=== PATIENT | male | born 1965 | race Caucasian/White ===

== ENCOUNTER 2017-03-10 11:40 | Inpatient (IN) | payer OTHER ==
[~2017-03-10] VITALS: Ht 170.2 cm; Wt 76.2 kg
--- NOTE | ~2017-03-10 | HC ---
[facility] [place] [address] CONSULTATION Name: GELA ALFARO Room #: 418-P [facility] IN M.R.#: [id number] Admission: 03/10/17 Attend Phys: Sigifredo Jacques MD, Discharge: Date of : 61 Report #: [id number] THIS REPORT FOR: //name// CC: Sigifredo Jacques MD [facility] Everton Leblanc CHIEF COMPLAINT: Right ureteral stone. HISTORY OF PRESENT ILLNESS: The patient is a very pleasant 51-year-old gentleman who is being seen today at the request of Dr. Jacques for evaluation and management of right distal ureteral stone. Specifically, he and saw Dr. Jacques who performed an ultrasound in his office, which revealed right hydronephrosis. He has had intermittent right-sided discomfort and CT is consistent with a 3.4 mm right UVJ stone. ALLERGIES: None. MEDICATIONS: Vyvanse. SOCIAL HISTORY: Nonsmoker. REVIEW OF SYSTEMS: He denies shortness of breath or chest pain. PHYSICAL EXAMINATION: GENERAL: He appears uncomfortable. VITAL SIGNS: Temperature is 36.5, pulse 67, blood pressure 151/88, respirations 18. ABDOMEN: Soft, without masses. LABORATORY DATA: White count , hemoglobin 16.0, hematocrit 46.1, platelets 279,000. Sodium 140, potassium 3.8, chloride 103, CO2 27, BUN 19, creatinine 1.8, glucose 129, calcium 8.7. CT scan shows a small lower pole right renal stone and a 3.4 mm right UVJ stone causing right hydronephrosis. IMPRESSION: Right UVJ stone. PLAN: Trial of passage including tamsulosin and appropriate narcotics and IV hydration. If he remains symptomatic then he will want to proceed with intervention. I discussed ureteroscopic stone extraction in detail with him. By: [id number] Jus Mills MD /nt
--- NOTE | ~2017-03-10 | HC ---
[facility] [place] [address] CONSULTATION Name: GELA ALFARO Room #: 418-P [facility] IN M.R.#: [id number] Admission: 03/10/17 Attend Phys: Sigifredo Jacques MD, Discharge: Date of : 61 Report #: [id number] THIS REPORT FOR: //name// CC: Sigifredo Leblanc DATE OF SERVICE: 03/10/2017 CHIEF COMPLAINT: Intractable flank pain. HISTORY OF PRESENT ILLNESS: The patient is a 51-year-old male, currently admitted by Dr. Jacques for obstructive nephrolithiasis, is needing management of his pain as well as for evaluation of his renal failure. He denies any other medical problems other than ADHD and is on Vyvanse for that. He was admitted early this morning and workup included a CT of the abdomen and pelvis that showed moderate right-sided hydronephrosis, hydroureter with several stones. He has been seen by Dr. Mills with urology and is scheduled for a procedure tomorrow. He has been having intractable right-sided flank pain as well as bilateral pelvic pain. He denies any recent fever or chills. He denies any other constellational symptoms than that has been associated with his kidney stones. He denies any kidney problem, fever, or chills. PAST MEDICAL HISTORY: ADHD, PAST SURGICAL HISTORY: None. FAMILY HISTORY: Cardiac problem on dad's side. SOCIAL HISTORY: He does not smoke, drinks about 3 ounces of whisky daily. He is , lives locally. MEDICATIONS: Vyvanse. ALLERGIES: None. PHYSICAL EXAMINATION: VITAL SIGNS: Temperature of 97, pulse 67, blood pressure 151/88, and O2 sat 96% on room air. GENERAL: He is awake, alert, answering question appropriately, in no acute respiratory distress. HEENT: Normocephalic, atraumatic. Pupils are equal. NECK: Supple. CARDIOVASCULAR: Regular rate and rhythm. No murmurs. LUNGS: Clear to auscultation bilaterally. No crackles or wheezes. ABDOMEN: Soft, obese. No distention. He indicates bilateral pelvic tenderness and right flank tenderness. [facility] [address] [place] [address] CONSULTATION Name: GELA ALFARO Room #: 418-P [facility] IN .R.#: [id number] Admission: 03/10/17 Attend Phys: Sigifredo Jacques MD, Discharge: Date of : 61 Report #: [id number] EXTREMITIES: No edema. NEUROLOGIC: Nonfocal. LABS AND TESTING: CT of the abdomen and pelvis as stated shows moderate right-sided hydronephrosis and hydroureter secondary to a 3-mm ureteric stone at the UV junction bulging into the bladder base, also moderated perinephric stranding and fluids surrounding the right kidney and right proximal ureter. Sodium 140, potassium 3.8, BUN and creatinine 19 and 1.8. Total bilirubin is 2.1. The remainder of his LFTs are within normal limits. We did not have previous labs to compare those two. His white count is 19.3, differential is not available, H of 16 and 46. ASSESSMENT AND PLAN: 1. Obstructive nephropathy with intractable pain. Urology has already been consulted. We will adjust his pain medications. Well will check a UA and also start him on antibiotics empirically. 2. Suspect acute kidney injury secondary to above acute process. We will continue IV hydration and recheck his renal indices in the morning. 3. Leukocytosis with some concerns for infection such as pyelonephritis. As stated, we will start him on some Cipro. Check a UA and follow serial CBCs. 4. 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 CT did not show any biliary or hepatic abnormalities, we would recheck in the a.m. 5. History of attention-deficit hyperactivity disorder. We will hold his Vyvanse now. 6. Deep venous thrombosis prophylaxis with SCDs. By: [id number] Sindy Gilliland MD /nt
--- NOTE | ~2017-03-10 | O ---
[facility] [address] OPERATIVE REPORT Name: GELA ALFARO Room #: 418-P DIS IN M.R.#: [id number] Admission: 03/10/17 Attend Phys: Sigifredo Jacques MD, Discharge: 03/11/17 Date of : 61 Report #: [id number] THIS REPORT FOR: //name// CC: Sigifredo Jacques MD [facility] DATE OF SERVICE: 03/11/2017 OPERATIVE ROOM: #4. SURGEON: Blas Zelaya M.D. AIRPORT ENGINEER: None. PREOPERATIVE DIAGNOSIS: Right ureteral calculus. POSTOPERATIVE DIAGNOSES: 1. Passed right ureteral calculus. 2. Bladder stone. PROCEDURE: Cystoscopy with removal of bladder stone and right retrograde pyeloureterogram. ESTIMATED BLOOD LOSS: None. COMPLICATIONS: None. ANESTHETIC: General. DESCRIPTION OF PROCEDURE: The patient was taken to the operating room and general anesthesia was induced. The patient was then prepped and draped in the usual sterile fashion in dorsal lithotomy position. The meatus was entered with a rigid cystoscope. The anterior urethra was normal. The sphincter was normal. The prostatic urethra was entered and showed mild obstruction. I then entered into the bladder. A stone was seen dependently on the posterior aspect of the bladder. I irrigated this out. The stone flushed out of the bladder and on to the floor. We were unable to find this on the floor as the floor of the cystoscopy suite is very dark and with the irrigation on the floor, we were unable to find the tiny stone. I examined the bladder mucosa systematically and there were no lesions seen. Ureteral orifices appeared orthotopic bilaterally. I then cannulated the right ureteral orifice with a cone-tipped ureteral catheter. This showed a completely normal retrograde pyeloureterogram. There were no filling defects seen in the ureter and contrast effluxed out promptly, with no evidence of obstruction or filling defects. The cystoscope was [facility] [place] [address] OPERATIVE REPORT Name: GELA ALFARO Pravin Room #: 418-P [facility] IN ..#: [id number] Admission: 03/10/17 Attend Phys: Sigifredo Jacques MD, Discharge: 03/11/17 Date of : 61 Report #: [id number] withdrawn. The patient tolerated the procedure well. He was transferred to recovery in satisfactory condition. There were no immediate complications. By: [id number] Blas Zelaya MD /nt
--- NOTE | ~2017-03-10 | H ---
[facility] [place] [address] [place] [address] HISTORY AND PHYSICAL Name: GELA ALFARO Room #: 418-P ADM IN M.R.#: [id number] Admission: 03/10/17 Attend Phys: Sigifredo Jacques MD, Discharge: Date of : 61 Report #: [id number] THIS REPORT FOR: //name// CC: Sigifredo Leblanc MD DATE OF SERVICE: 03/10/2017 HISTORY OF PRESENT ILLNESS: The patient is a 51-year-old male who has a history of some borderline hypertension, but otherwise stable cardiovascular coates. Had some atypical chest pain over the weekend with some right-sided chest discomfort, right upper quadrant, and then this morning markedly worse in the right flank. States excruciating pain, the worst he has had. He came to the office for an abdominal ultrasound, which revealed a significant suspicion of a kidney stone with some mild edema around the right kidney. Subsequently admitted to [facility] here for IV fluids, pain control, and Urology consult. A CAT scan was obtained, and it did reveal a moderate hydronephrosis with moderate perinephric and periureteric stranding, fascial thickening and fluid, a 3.4 mm distal ureteric stone which bulges into the right bladder base. Left kidney was normal. This is consistent with the ultrasound findings. Laboratory work revealed a creatinine of 1.8, potassium of 3.8. Normal liver function tests. H and H were 16 and 46, white count was 19.3, platelets were 279. Urinalysis still pending. Was seen by Urology and pain medicine, IV fluids, tamsulosin for the prostate and pain medications as I stated. PAST MEDICAL HISTORY: Positive for some borderline hypertension and ADHD. MEDICATIONS: Vyvanse. FAMILY HISTORY: Father did have premature coronary disease around age 60. Still alive in his 80s. 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 He is , 2 children. Social alcohol, no tobacco. REVIEW OF SYSTEMS: Negative except for does have a history of some hesitancy and nocturia and as stated above. PHYSICAL EXAMINATION: GENERAL: He still has some moderate amount of discomfort, but much better with pain medications. VITAL SIGNS: Blood pressure 150/88, pulse 60s. HEENT: Eyes reveal xanthelasmas. Pharynx is clear. NECK: Shows preserved upstrokes without JVD or bruits. [facility] [address] [place] [address] HISTORY AND PHYSICAL Name: GELA ALFARO Room #: 418-P [facility] IN .R.#: [id number] Admission: 03/10/17 Attend Phys: Sigifredo Jacques MD, Discharge: Date of : 61 Report #: [id number] LUNGS: Clear. CARDIOVASCULAR: Regular rate and rhythm, S1, S2 without murmur or gallop. ABDOMEN: Soft. No HSM or abdominal bruit. There is significant flank discomfort and right lower quadrant tenderness now with some minimal rebound. Right flank is certainly tender. EXTREMITIES: Reveal no edema. Pulses were intact. NEUROLOGIC: Nonfocal. SKIN: Warm and dry without xanthoma or ulcer. MUSCULOSKELETAL: No gross joint deformity. ASSESSMENT: 1. Right-sided acute nephrolithiasis, kidney stone with obstruction. 2. Obstructive uropathy with creatinine increased 1.8. 3. Relative hypovolemia. 4. Hypertension. 5. Attention-deficit/hyperactivity disorder. RECOMMENDATIONS AND PLAN: Appreciate Urology consult, IV fluids, pain control. We will intervene mechanically at surgery in the a.m. if the stone does not pass. IV antibiotics also initiated. We will follow blood pressure, but I suspect some of this pressure is elevated due to the pain. We will adjust blood pressure medication presumably as an outpatient, repeat a.m. lab. Thank you for asking me to assist in the care of this patient. By: 20 52 Sigifredo Jacques MD, FACC /nt
[2017-03-10 12:17] VITALS: BP 151/88
[2017-03-10 12:23] LABS: HEMATOCRIT 46.1 % (42.0-52.0); MCH 30.4 pg (26.0-34.0); MCHC 34.7 g/dL (28.0-37.0); MCV 87.6 fL (80.0-100.0); RBC 5.26 mil/uL (4.50-6.00); WBC 19.3 thou/uL (4.0-11.0)
[2017-03-10 12:31] LABS: CALCIUM 8.7 mg/dL (8.5-10.1); CREATININE 1.8 mg/dL (0.7-1.3); POTASSIUM 3.8 mmol/L (3.5-5.1)
[2017-03-10 12:36] LABS: TOTAL BILIRUBIN 2.1 mg/dL (<0.1-1.0); TOTAL PROTEIN 7.1 g/dL (6.4-8.2)
[2017-03-10] MEDS ORDERED: VYVANSE70 MG PO (18:04)
[2017-03-10 20:00] VITALS: BP 159/88
[2017-03-11] VITALS (8 sets, daily range): BP systolic 121–141; BP diastolic 68–83
[2017-03-11 01:08] LABS: URINE BILIRUBIN NEGATIVE (Negative); URINE BLOOD 3+ (Negative); URINE COLOR YELLOW; URINE GLUCOSE-RANDOM* NEGATIVE (Negative); URINE KETONES NEGATIVE (Negative); URINE NITRITE NEGATIVE (Negative); URINE PROTEIN (DIPSTICK) NEGATIVE (Negative); URINE SPECIFIC GRAVITY >= 1.030 (1.003-1.035); URINE UROBILINOGEN 0.2 E.U./dl (0.2-1.0)
[2017-03-11 01:19] LABS: CASTS None Seen /LPF (None Seen); SQUAMOUS None Seen /LPF (0-3)
[2017-03-11 01:20] LABS: BACTERIA None Seen /HPF (None Seen); CRYSTALS None Seen /LPF (None Seen); URINE RBC 3-10 Few /HPF (0-2); URINE WBC 0-5 Rare /HPF (0-5)
[2017-03-11 06:04] LABS: HEMATOCRIT 42.3 % (42.0-52.0); HEMOGLOBIN 14.1 gm/dL (14.0-18.0); MCH 29.6 pg (26.0-34.0); MCHC 33.4 g/dL (28.0-37.0); MCV 88.5 fL (80.0-100.0); RBC 4.78 mil/uL (4.50-6.00); RDW 13.1 % (10.5-14.5); WBC 20.4 thou/uL (4.0-11.0)
[2017-03-11 06:22] LABS: ALBUMIN 3.4 g/dL (3.4-5.0); CALCIUM 8.1 mg/dL (8.5-10.1); CREATININE 1.7 mg/dL (0.7-1.3); POTASSIUM 4.5 mmol/L (3.5-5.1); TOTAL BILIRUBIN 2.1 mg/dL (<0.1-1.0); TOTAL PROTEIN 6.6 g/dL (6.4-8.2)
== END 2017-03-11 17:55 | disposition home or self-care (01) | DRG 699 ==
LOC: 4E 11:40
PROVIDERS: Family Medicine; Internal Medicine Cardiovascular Disease; Specialist
PROC: BT1D1ZZ Fluoroscopy of Right Kidney, Ureter and Bladder using Low Osmolar Contrast (ICD-10-PCS; principal; 2017-03-11)
PROC: 0TCB8ZZ Extirpation of Matter from Bladder, Via Natural or Artificial Opening Endoscopic (ICD-10-PCS; principal; 2017-03-11)
PROC: 0T768DZ Dilation of Right Ureter with Intraluminal Device, Via Natural or Artificial Opening Endoscopic (ICD-10-PCS; principal; 2017-03-11)
DX: N13.9 Obstructive and reflux uropathy, unspecified (principal); N17.9 Acute kidney failure, unspecified; N20.2 Calculus of kidney with calculus of ureter; F90.9 Attention-deficit hyperactivity disorder, unspecified type; D72.829 Elevated white blood cell count, unspecified; E80.6 Other disorders of bilirubin metabolism; E86.1 Hypovolemia; I10 Essential (primary) hypertension; Z79.899 Other long term (current) drug therapy; Z82.49 Family history of ischemic heart disease and other diseases of the circulatory system; N18.9 Chronic kidney disease, unspecified
CPT/HCPCS: 10183; 50010; 50101; 50478; 56674; 56815; 62110; 62900; 70005

== ENCOUNTER → 2020-04-17 | Outpatient (CLI) | payer OTHER ==
[~2020-04-17] MED LIST: VYVANSE70 MG PO
== END ==
LOC: CAT 16:08
DX: Z13.6 Encounter for screening for cardiovascular disorders (principal); I25.10 Atherosclerotic heart disease of native coronary artery without angina pectoris; E78.00 Pure hypercholesterolemia, unspecified